=== PATIENT | female | born 1985 | race Caucasian/White ===

== ENCOUNTER 2021-03-15 23:44 | Emergency (ER) | payer SELFPAY ==
[2021-03-16 00:09] VITALS: BP 139/94; PULSE 85; TEMP 98.8; BMI 34.0
== END 2021-03-16 00:26 | disposition home or self-care (01) ==
LOC: FER 23:44
DX: J06.9 Acute upper respiratory infection, unspecified (principal); Z11.52 Encounter for screening for COVID-19
CPT/HCPCS: 87804; 87807; 99283-25; C9803; U0003; U0005